=== PATIENT | male | born 1945 | race Caucasian/White ===

== ENCOUNTER 2022-03-04 04:13 | Day surgery (SDC) | payer OTHER, BC ==
[2022-03-02 12:18] VITALS: BMI 27.9
[2022-03-04 08:51] VITALS: TEMP 98.6
[2022-03-04 09:36] VITALS: BP 162/80; PULSE 62; RESP 16
== END 2022-03-04 09:33 | disposition home or self-care (01) ==
LOC: JASU-ENDO 04:13
PROVIDERS: ATTEND Internal Medicine Gastroenterology
PROC: 0DBL8ZX Excision of Transverse Colon, Via Natural or Artificial Opening Endoscopic, Diagnostic (ICD-10-PCS; principal; 2022-03-04 08:00)
DX: Z12.11 Encounter for screening for malignant neoplasm of colon (principal); D12.3 Benign neoplasm of transverse colon; K57.30 Diverticulosis of large intestine without perforation or abscess without bleeding; K64.8 Other hemorrhoids; Z86.010 Personal history of colon polyps
CPT/HCPCS: 88305-TC